=== PATIENT | male | born 1945 ===

== ENCOUNTER → 2023-09-25 08:00 | Outpatient (REF) | payer MEDICARE, BC, SELFPAY | LOC: MRI 08:00 | PROVIDERS: ATTENDING PHYSICIAN Physical Medicine & Rehabilitation Sports Medicine; FAMILY PHYSICIAN Family Medicine; REFERRING PHYSICIAN Radiology Diagnostic Radiology | DX: M48.062 Spinal stenosis, lumbar region with neurogenic claudication (principal); Z01.89 Encounter for other specified special examinations | CPT/HCPCS: 70360; 71046; 72148 ==

== ENCOUNTER → 2024-10-31 08:15 | Outpatient (REF) | payer MEDICARE, BC, SELFPAY | LOC: PAVMRI 08:15 | PROVIDERS: ATTENDING PHYSICIAN Urology; FAMILY PHYSICIAN Family Medicine | DX: N40.2 Nodular prostate without lower urinary tract symptoms (principal) | CPT/HCPCS: 72197; 76014; 76015; A9575 ==